=== PATIENT | male | born 1985 | race Caucasian/White ===

== ENCOUNTER 2017-01-11 05:49 | Emergency (ER) | payer OTHER ==
[2017-01-11 06:04] LABS: POTASSIUM 3.6 mEq/L (3.7-5.4)
[2017-01-11 06:14] LABS: BASOPHIL COUNT 0.1 K/uL (0-0.1); EOSINOPHIL (%) 2.9 % (0-5); EOSINOPHIL COUNT 0.3 K/uL (0-0.3); HEMATOCRIT 43.2 % (38.0-50.0); IMMATURE GRANULOCYTE (%) 0.6 % (0.0-0.7); IMMATURE GRANULOCYTE COUNT 0.1 K/uL; INSTRUMENT ABS NEUTROPHIL CT 7.1 K/uL; LYMPHOCYTE COUNT 2.5 K/uL (1.0-2.8); MCH 27.8 PG (29.0-34.0); MCHC 33.1 G/DL (30.0-36.0); MEAN PLAT.VOLUME 9.2 uM^3 (9.0-12.4); MONOCYTE (%) 5.6 % (3-12); MONOCYTE COUNT 0.6 K/uL (0-0.8); NEUTROPHIL (%) 66.8 % (45-76); NEUTROPHIL COUNT 7.1 K/uL (1.8-6.4); PLATELET COUNT 348 K/uL (156-360); RBC DIS.WIDTH-CV 12.7 % (11.8-14.6); RBC DIS.WIDTH-SD 39.2 % (39-53); RED BLOOD COUNT 5.14 M/uL (4.00-5.50); WHITE BLOOD COUNT 10.6 K/uL (4.1-10.2)
[2017-01-11 06:30] LABS: AMYLASE 92 IU/L (1-118); CHLORIDE 103 mEq/L (99-109); POTASSIUM 3.9 mEq/L (3.7-5.4); SODIUM 140 mEq/L (136-147)
[2017-01-11 06:31] LABS: GLUCOSE 112 mg/dL (70-99)
[2017-01-11 06:33] LABS: ANION GAP 15 MEQ/L (2-14)
[2017-01-11 06:35] LABS: GFR ESTIMATE (CALCULATED) > 59 mL/min/; SERUM ETHYL ALCOHOL < 10 mg/dL
[2017-01-11 06:36] LABS: UREA NITROGEN (BUN) 17 mg/dL (9-23)
[2017-01-11 06:38] LABS: LIPASE 341 U/L (1.0-51.0)
== END 2017-01-11 06:45 | disposition short-term general hospital (02) ==
LOC: TRA 05:49
PROVIDERS: Emergency Medicine
PROC: 0QSHXZZ Reposition Left Tibia, External Approach (ICD-10-PCS; principal; 2017-01-11)
DX: S82.252B Displaced comminuted fracture of shaft of left tibia, initial encounter for open fracture type I or II (principal); W24.0XXA Contact with lifting devices, not elsewhere classified, initial encounter; Y99.0 Civilian activity done for income or pay
CPT/HCPCS: 73590; 80047; 80048; 81003; 82150; 83690; 85025; 86850; 86900; 86901; 94799; 99281; 99285; G0480; J0690